=== PATIENT | female | born 1985 | race Caucasian/White ===

== ENCOUNTER 2017-07-16 20:59 | Emergency (ER) | payer OTHER ==
[~2017-07-16] VITALS: Ht 180.3 cm; Wt 83.9 kg
[2017-07-16 21:16] VITALS: BP 128/86
[2017-07-16 23:27] LABS: Hepatitis B Surface Antibody Negative
== END 2017-07-16 22:43 | disposition home or self-care (01) ==
LOC: ER 21:07
DX: Z77.21 Contact with and (suspected) exposure to potentially hazardous body fluids (principal)
CPT/HCPCS: 36415; 86703; 86706; 86803; 87340

== ENCOUNTER 2019-11-20 00:31 | Emergency (ER) | payer OTHER ==
[~2019-11-20] VITALS: Ht 182.9 cm; Wt 83.9 kg
[2019-11-20 01:00] VITALS: BP 133/79
[2019-11-22 18:40] LABS: Hepatitis B Surface Antigen Negative (Negative)
[2019-11-22 21:21] LABS: Hepatitis B Surface Antibody Negative
== END 2019-11-20 01:00 | disposition home or self-care (01) ==
LOC: ER 00:33
DX: S61.431A Puncture wound without foreign body of right hand, initial encounter (principal); W27.3XXA Contact with needle (sewing), initial encounter; Y93.89 Activity, other specified; Y92.89 Other specified places as the place of occurrence of the external cause; Y99.8 Other external cause status
CPT/HCPCS: 36415; 86703; 86706; 86803; 87340